=== PATIENT | male | born 1960 | race Caucasian/White ===

== ENCOUNTER 2016-10-08 12:15 | Inpatient (IN) | payer MEDICAID, OTHER ==
[~2016-10-08] VITALS: Ht 172.7 cm; Wt 74.6 kg
[~2016-10-08 12:15] MED LIST: DIVA500T52 PO; DOCU250C91 PO; LEVO50 PO; LITH300C3 PO; OMEP20 PO; QUET200T PO
[2016-10-08] MEDS ORDERED: MULT-1106 PO (13:37)
[2016-10-08] MEDS ORDERED: BENZ2TAB10 PO (13:37)
[2016-10-08] MEDS ORDERED: DIPH50 PO (13:37)
[2016-10-08] MEDS ORDERED: [UNRECOGNIZED DRUG - CODE] PO (13:37)
[2016-10-08] MEDS ORDERED: POLY1GRA MC (13:37)
[2016-10-08] MEDS ORDERED: PROP10 PO (13:37)
[2016-10-08] MEDS ORDERED: IBUP-2070 PO (13:37)
[2016-10-08] MEDS ORDERED: DiphenhydrAMINE HCL 50 MG/ML VIAL IM ONE (14:15)
[2016-10-08] MEDS ORDERED: ZOLPIDEM TARTRATE 10 MG TABLET PO PRN (14:15)
[2016-10-08] MEDS ORDERED: LORazepam 2 MG/ML VIAL IM ONE (14:15)
[2016-10-08] MEDS ORDERED: QUEtiapine FUMARATE 100 MG TABLET PO PRN (14:15)
[2016-10-08] MEDS ORDERED: MIRAUD PO (14:17)
[2016-10-08] MEDS ORDERED: DIPH25 PO (14:17)
[2016-10-08 14:47] LABS: BASOPHILS % (AUTO) 0.4 % (0.0-2.0); EOSINOPHILS % (AUTO) 6.4 % (1.0-6.0); HEMOGLOBIN 13.7 g/dL (13.5-17.5); LYMPHOCYTES # (AUTO) 4.6 K/uL (1.0-4.8); LYMPHOCYTES % (AUTO) 40.3 % (22.0-44.0); MEAN CORPUSCULAR HEMOGLOBIN 34.1 pg (26.0-34.0); MEAN CORPUSCULAR HGB CONC 32.7 G/dL (31.0-37.0); MEAN CORPUSCULAR VOLUME 104 fL (80-100); MONOCYTES % (AUTO) 9.1 % (2.0-9.0); NEUTROPHILS % (AUTO) 43.8 % (40.0-70.0); PLATELET COUNT (AUTO) 257 K/uL (150-450); RED BLOOD CELL COUNT(AUTO) 4.02 MIL/uL (4.50-5.90); RED CELL DISTRIBUTION WIDTH 14.2 % (11.5-14.5); WHITE BLOOD COUNT (AUTO) 11.5 K/uL (4.5-11.0)
[2016-10-08 14:54] LABS: ANION GAP 10 mmol/L (8-16); CALCIUM, TOTAL 9.6 mg/dL (8.8-10.5); CARBON DIOXIDE 25 mmol/L (22-29); CHLORIDE 104 mmol/L (98-107); CREATININE 1.05 mg/dL (0.60-1.30); GLOMERULAR FILTR. RATE CALC > 60 mL/min (>60); POTASSIUM 3.8 mmol/L (3.5-5.1); SODIUM SERUM 139 mmol/L (136-145); UREA NITROGEN, BLOOD 8 mg/dL (7-18)
[2016-10-08 15:00] LABS: ALANINE AMINOTRANSFERASE 28 U/L (12-78); ALBUMIN 3.1 g/dL (3.4-5.0); ASPARTATE AMINOTRANSFERASE 23 U/L (15-37); BILIRUBIN,TOTAL 0.4 mg/dL (0.1-1.0); TOTAL PROTEIN, SERUM 7.3 g/dL (6.4-8.2)
[2016-10-08 15:55] LABS: RBC MORPHOLOGY COMMENT ABNORMAL RBC MORPH
[2016-10-08 20:25] VITALS: BP 137/91
[2016-10-08] MEDS: DIVALPROEX SODIUM 500 MG DR TABLET PO SCH (20:51)
[2016-10-08] MEDS: QUEtiapine FUMARATE 200 MG TABLET PO SCH (20:52)
[2016-10-09] MEDS ORDERED: INFLUENZA VIRUS VACCINE QVS 2016-17 (3YR+)/PF 60 MCG/0.5 ML SYRINGE IM ONE (06:45)
[2016-10-09] MEDS ORDERED: IBUPROFEN 600 MG TABLET PO PRN (10:15)
[2016-10-09] MEDS ORDERED: PETROLATUM,WHITE 71 GM JELLY TP PRN (10:15)
[2016-10-09] MEDS ORDERED: ONDANSETRON HCL 4 MG TABLET PO PRN (10:15)
[2016-10-09] MEDS ORDERED: BACITRACIN 28.4 GM OINTMENT TP PRN (10:15)
[2016-10-09] MEDS ORDERED: ALBUTEROL SULFATE HFA 90 MCG/PUFF 8 GM INHALER IH PRN (10:15)
[2016-10-09] MEDS ORDERED: MAGNESIUM HYDROXIDE SUSPENSION 30 ML UDCUP PO PRN (10:15)
[2016-10-09] MEDS ORDERED: BENZOCAINE/MENTHOL LOZENGE [8 LOZENGES/PACKET] MM PRN (10:15)
[2016-10-09] MEDS ORDERED: LOPERAMIDE HCL 2 MG CAPSULE PO PRN (10:15)
[2016-10-09] MEDS ORDERED: MAG HYDROX/AL HYDROX/SIMETH ES 30 ML SUSPENSION UDCUP PO PRN (10:15)
[2016-10-09] MEDS ORDERED: ACETAMINOPHEN 325 MG TABLET PO PRN (10:15)
[2016-10-09] MEDS ORDERED: CloNIDine HCL 0.1 MG TABLET PO PRN (10:15)
[2016-10-09 12:56] VITALS: BP 156/71
[2016-10-09 16:00] VITALS: BP 111/66
[2016-10-09] MEDS: DIVALPROEX SODIUM 500 MG DR TABLET PO SCH (20:34)
[2016-10-09] MEDS: QUEtiapine FUMARATE 200 MG TABLET PO SCH (20:34)
[2016-10-10 08:43] VITALS: BP 152/64
[2016-10-10] MEDS: MULTIVITAMINS WITH IRON TABLET PO SCH (09:00)
[2016-10-10] MEDS: OMEPRAZOLE 20 MG CAPSULE PO SCH (09:00)
[2016-10-10 16:37] VITALS: BP 137/99
[2016-10-10] MEDS: QUEtiapine FUMARATE 200 MG TABLET PO SCH (21:32)
[2016-10-10] MEDS: DIVALPROEX SODIUM 500 MG DR TABLET PO SCH (21:32)
[2016-10-11 08:00] VITALS: BP 107/68
[2016-10-11] MEDS: OMEPRAZOLE 20 MG CAPSULE PO SCH (10:08)
[2016-10-11] MEDS: MULTIVITAMINS WITH IRON TABLET PO SCH (10:08)
[2016-10-11 16:00] VITALS: BP 129/78
[2016-10-11] MEDS: QUEtiapine FUMARATE 200 MG TABLET PO SCH (21:42)
[2016-10-11] MEDS: DIVALPROEX SODIUM 500 MG DR TABLET PO SCH (21:42)
[2016-10-12 01:05] VITALS: BP 150/84
[2016-10-12 08:02] VITALS: BP 119/78
[2016-10-12] MEDS: OMEPRAZOLE 20 MG CAPSULE PO SCH (10:01)
[2016-10-12] MEDS: MULTIVITAMINS WITH IRON TABLET PO SCH (10:01)
[2016-10-12 17:36] VITALS: BP 124/92
[2016-10-12] MEDS: DIVALPROEX SODIUM 500 MG DR TABLET PO SCH (20:48)
[2016-10-12] MEDS: QUEtiapine FUMARATE 200 MG TABLET PO SCH (20:48)
[2016-10-13 08:01] VITALS: BP 146/72
[2016-10-13] MEDS: OMEPRAZOLE 20 MG CAPSULE PO SCH (11:36)
[2016-10-13] MEDS: MULTIVITAMINS WITH IRON TABLET PO SCH (11:36)
[2016-10-13 17:13] VITALS: BP 119/78
[2016-10-13] MEDS: QUEtiapine FUMARATE 200 MG TABLET PO SCH (20:26)
[2016-10-13] MEDS: DIVALPROEX SODIUM 500 MG DR TABLET PO SCH (20:26)
[2016-10-14 00:30] VITALS: BP 143/73
[2016-10-14 08:00] VITALS: BP 139/96
[2016-10-14] MEDS: MULTIVITAMINS WITH IRON TABLET PO SCH (09:29)
[2016-10-14] MEDS: OMEPRAZOLE 20 MG CAPSULE PO SCH (09:29)
[2016-10-14 16:35] VITALS: BP 141/86
[2016-10-14] MEDS: QUEtiapine FUMARATE 200 MG TABLET PO SCH (20:15)
[2016-10-14] MEDS: DIVALPROEX SODIUM 500 MG DR TABLET PO SCH (20:16)
[2016-10-15 08:00] VITALS: BP 133/88
[2016-10-15] MEDS: MULTIVITAMINS WITH IRON TABLET PO SCH (08:32)
[2016-10-15] MEDS: OMEPRAZOLE 20 MG CAPSULE PO SCH (08:32)
[2016-10-15 16:30] VITALS: BP 148/66
[2016-10-15] MEDS: QUEtiapine FUMARATE 200 MG TABLET PO SCH (21:19)
[2016-10-15] MEDS: DIVALPROEX SODIUM 500 MG DR TABLET PO SCH (21:19)
[2016-10-16 08:00] VITALS: BP 105/61
[2016-10-16] MEDS: OMEPRAZOLE 20 MG CAPSULE PO SCH (09:54)
[2016-10-16] MEDS: QUEtiapine FUMARATE 200 MG TABLET PO SCH ×2 (09:54→21:16)
[2016-10-16] MEDS: MULTIVITAMINS WITH IRON TABLET PO SCH (09:54)
[2016-10-16] MEDS: DIVALPROEX SODIUM 500 MG DR TABLET PO SCH ×2 (09:56→21:17)
[2016-10-16] MEDS: LORazepam 2 MG TABLET PO PRN (16:45)
[2016-10-17 08:00] VITALS: BP 129/67
[2016-10-17] MEDS: OMEPRAZOLE 20 MG CAPSULE PO SCH (09:27)
[2016-10-17] MEDS: DIVALPROEX SODIUM 500 MG DR TABLET PO SCH ×2 (09:27→20:52)
[2016-10-17] MEDS: MULTIVITAMINS WITH IRON TABLET PO SCH (09:27)
[2016-10-17] MEDS: QUEtiapine FUMARATE 200 MG TABLET PO SCH ×2 (09:28→20:52)
[2016-10-17 16:30] VITALS: BP 126/73
[2016-10-18 02:40] VITALS: BP 132/76
[2016-10-18] MEDS: LORazepam 2 MG TABLET PO PRN (02:42)
[2016-10-18] MEDS: QUEtiapine FUMARATE 200 MG TABLET PO SCH (08:26)
[2016-10-18] MEDS: DIVALPROEX SODIUM 500 MG DR TABLET PO SCH (08:26)
[2016-10-18] MEDS: OMEPRAZOLE 20 MG CAPSULE PO SCH (08:26)
[2016-10-18 09:28] VITALS: BP 146/96
[2016-10-18] MEDS: MULTIVITAMINS WITH IRON TABLET PO SCH (14:44)
[2016-12-17] MEDS ORDERED: LITH300C3 PO (10:38)
[2016-12-17] MEDS ORDERED: DIVA125T PO ×2 (10:38)
[2016-12-17] MEDS ORDERED: BENZ2TAB10 PO (10:38)
[2016-12-17] MEDS ORDERED: PROP10 PO (10:38)
[2016-12-17] MEDS ORDERED: QUET100T PO (10:38)
[2016-12-17] MEDS ORDERED: QUET200T PO (10:38)
== END 2016-10-18 14:45 | disposition home or self-care (01) | DRG 750 ==
LOC: EMS 12:17 → EEVIPCON 12:17 → 3EC 16:04 → 3EI 10-12 21:29
DX: F25.0 Schizoaffective disorder, bipolar type (principal); J44.9 Chronic obstructive pulmonary disease, unspecified; G40.909 Epilepsy, unspecified, not intractable, without status epilepticus; E03.9 Hypothyroidism, unspecified; F10.20 Alcohol dependence, uncomplicated; K21.9 Gastro-esophageal reflux disease without esophagitis; M19.90 Unspecified osteoarthritis, unspecified site; K59.00 Constipation, unspecified; Z88.8 Allergy status to other drugs, medicaments and biological substances; Z78.1 Physical restraint status; Z79.899 Other long term (current) drug therapy
CPT/HCPCS: 96372; 99285; G0480; J1200; J2060; Q0162

== ENCOUNTER 2020-08-08 13:09 | Inpatient (IN) | payer OTHER, SELFPAY ==
[~2020-08-08] VITALS: Ht 172.7 cm; Wt 70.5 kg
[~2020-08-08 13:09] MED LIST changes: +BENZ1TAB10 PO; +BENZ2TAB10 PO; -DIVA500T52 PO; -DOCU250C91 PO; +DSS100 PO; +FERR-89 PO; +LACT30L PO; +LEVO25TA9 PO; -LEVO50 PO; +OLAN10TA3 PO; +OMEG-12 PO
[2020-08-08] MEDS ORDERED: DiphenhydrAMINE HCL 50 MG/ML VIAL IM ONE (14:45)
[2020-08-08] MEDS ORDERED: LORazepam 2 MG/ML VIAL IM ONE (14:45)
[2020-08-08 15:30] LABS: COVID AG,FIA SOURCE NASOPHARYNGEAL
[2020-08-08] MEDS ORDERED: ZOLPIDEM TARTRATE 10 MG TABLET PO PRN (17:15)
[2020-08-08] MEDS ORDERED: QUEtiapine FUMARATE 100 MG TABLET PO PRN (17:15)
[2020-08-08 17:39] LABS: BASOPHILS % (AUTO) 0.4 % (0.0-2.0); EOSINOPHILS % (AUTO) 1.1 % (1.0-6.0); HEMATOCRIT 39.9 % (41-53); LYMPHOCYTES # (AUTO) 1.8 K/uL (1.0-4.8); LYMPHOCYTES % (AUTO) 11.1 % (22.0-44.0); MEAN CORPUSCULAR HEMOGLOBIN 32.2 pg (26.0-34.0); MEAN CORPUSCULAR HGB CONC 32.7 G/dL (31.0-37.0); MEAN CORPUSCULAR VOLUME 98 fL (80-100); MONOCYTES # (AUTO) 1.4 K/uL (0.1-1.0); MONOCYTES % (AUTO) 8.8 % (2.0-9.0); NEUTROPHILS # (AUTO) 12.9 K/uL (1.8-7.7); NEUTROPHILS % (AUTO) 78.6 % (40.0-70.0); PLATELET COUNT (AUTO) 344 K/uL (150-450); RED BLOOD CELL COUNT(AUTO) 4.05 MIL/uL (4.50-5.90); RED CELL DISTRIBUTION WIDTH 13.7 % (11.5-14.5)
[2020-08-08 18:01] LABS: ANION GAP 11 mmol/L (8-16); CALCIUM, TOTAL 9.1 mg/dL (8.8-10.5); CARBON DIOXIDE 27 mmol/L (22-29); CHLORIDE 106 mmol/L (98-107); CREATININE 0.72 mg/dL (0.60-1.30); GLOMERULAR FILTR. RATE CALC > 60 mL/min (>60); GLUCOSE,RANDOM 97 mg/dL (70-110); POTASSIUM 3.8 mmol/L (3.5-5.1); SODIUM SERUM 144 mmol/L (136-145); UREA NITROGEN, BLOOD 6 mg/dL (7-18)
[2020-08-08 18:17] LABS: ALANINE AMINOTRANSFERASE 16 U/L (12-78); ALBUMIN 3.3 g/dL (3.4-5.0); ALKALINE PHOSPHATASE 141 U/L (46-116); ASPARTATE AMINOTRANSFERASE 18 U/L (15-37); BILIRUBIN,TOTAL 0.4 mg/dL (0.1-1.0); FREE T4 (FREE THYROXINE) 1.22 ng/dL (0.76-1.46); THYROID STIMULATING HORMONE 1.31 uIU/mL (0.36-3.74); TOTAL PROTEIN, SERUM 7.2 g/dL (6.4-8.2)
[2020-08-08 18:45] LABS: LITHIUM < 0.20 mmol/L (0.60-1.20)
[2020-08-08] MEDS ORDERED: AZITHROMYCIN 500 MG/NS 250 ML IV ONE (20:30)
[2020-08-08] MEDS ORDERED: CefTRIAXone 1 GM/DEXTROSE 50 ML IV ONE (20:30)
[2020-08-08 21:28] LABS: INFLUENZA TYPE A NEGATIVE FOR TYPE A (NEGATIVE); INFLUENZA TYPE B NEGATIVE FOR TYPE B (NEGATIVE)
[2020-08-08] MEDS ORDERED: ZOLPIDEM TARTRATE 5 MG TABLET PO PRN (21:45)
[2020-08-08] MEDS ORDERED: ALBUTEROL SULFATE 2.5 MG/0.5 ML NEB SOLUTION NEB PRN (21:45)
[2020-08-08] MEDS ORDERED: MAGNESIUM HYDROXIDE SUSPENSION 30 ML UDCUP PO PRN (21:45)
[2020-08-08] MEDS ORDERED: IPRATROPIUM BROMIDE 0.5 MG/2.5 ML NEB SOLUTION NEB PRN (21:45)
[2020-08-08] MEDS ORDERED: BISACODYL 10 MG RECTAL RECTAL SUPPOSITORY PR PRN (21:45)
[2020-08-08] MEDS ORDERED: MORPHINE SULFATE 2 MG/ML SYRINGE IVP PRN (21:45)
[2020-08-08] MEDS ORDERED: ACETAMINOPHEN 325 MG TABLET PO PRN (21:45)
[2020-08-08] MEDS ORDERED: HYDROCODONE/ACETAMINOPHEN 5-325 MG TABLET PO PRN (21:45)
[2020-08-08] MEDS ORDERED: ONDANSETRON HCL 4 MG/2 ML VIAL IVP PRN (21:45)
[2020-08-08] MEDS: LEVOFLOXACIN 750 MG/D5% WATER 150 ML IV SCH (23:01)
[2020-08-09] MEDS: HEPARIN SODIUM,PORCINE 5,000 UNITS/ML VIAL SQ SCH ×4 (00:32→23:58)
[2020-08-09 02:21] LABS: APPEARANCE,URINE CLEAR (CLEAR); BILIRUBIN,URINE NEGATIVE (NEGATIVE); GLUCOSE, URINE (UA) NEGATIVE (NEGATIVE); KETONES,URINE NEGATIVE (NEGATIVE); LEUKOCYTE ESTERASE ,URINE TRACE (NEGATIVE); NITRATE,URINE NEGATIVE (NEGATIVE); OCCULT BLOOD,URINE NEGATIVE (NEGATIVE); PH,URINE 6.5 (5.0-8.0); PROTEIN,URINE TRACE (NEGATIVE); UROBILINOGEN,URINE 0.2 mg/dL (<=1.0)
[2020-08-09 02:26] LABS: AMPHET/METH SCREEN,URINE NEGATIVE (NEGATIVE); BARBITURATE SCREEN, URINE NEGATIVE (NEGATIVE); BENZODIAZEPINES SCREEN,URINE NEGATIVE (NEGATIVE); CANNABINOID SCREEN,URINE NEGATIVE (NEGATIVE); COCAINE SCREEN,URINE NEGATIVE (NEGATIVE); METHADONE SCREEN, URINE NEGATIVE (NEGATIVE); OPIATE SCREEN,URINE NEGATIVE (NEGATIVE)
[2020-08-09 02:27] LABS: BACTERIA,URINE Few /HPF (None Seen); PHENCYCLIDINE SCREEN,URINE NEGATIVE (NEGATIVE); RBC,URINE 0-2 /HPF (0-2); SQUAMOUS EPITHELIAL CELL,UR Few /LPF (None Seen)
[2020-08-09] MEDS: LORazepam 2 MG TABLET PO PRN ×2 (03:21→17:03)
[2020-08-09] MEDS: PANTOPRAZOLE SODIUM 40 MG DR TABLET PO SCH (07:46)
[2020-08-09] MEDS: LACTULOSE 20 GM/30 ML SOLUTION UDCUP PO SCH (07:47)
[2020-08-09] MEDS: DOCUSATE SODIUM 100 MG CAPSULE PO SCH ×2 (08:01→22:51)
[2020-08-09] MEDS: QUEtiapine FUMARATE 200 MG TABLET PO SCH ×2 (08:06→22:53)
[2020-08-09] MEDS: FERROUS SULFATE 325 MG EC TABLET PO SCH ×2 (08:08→17:30)
[2020-08-09] MEDS: BENZTROPINE MESYLATE 1 MG TABLET PO SCH (08:20)
[2020-08-09] MEDS: LEVOTHYROXINE SODIUM 25 MCG TABLET PO SCH (08:20)
[2020-08-09] MEDS: OLANZapine 10 MG TABLET PO SCH ×2 (08:21→23:33)
[2020-08-09] MEDS: LITHIUM CARBONATE 300 MG CAPSULE PO SCH (08:21)
[2020-08-09] MEDS ORDERED: BENZTROPINE MESYLATE 1 MG TABLET PO SCH (09:00)
[2020-08-09 10:19] LABS: BASOPHILS % (AUTO) 0.5 % (0.0-2.0); EOSINOPHILS % (AUTO) 1.2 % (1.0-6.0); HEMATOCRIT 37.4 % (41-53); HEMOGLOBIN 12.4 g/dL (13.5-17.5); LYMPHOCYTES # (AUTO) 2.2 K/uL (1.0-4.8); LYMPHOCYTES % (AUTO) 24.9 % (22.0-44.0); MEAN CORPUSCULAR HEMOGLOBIN 32.6 pg (26.0-34.0); MEAN CORPUSCULAR HGB CONC 33.1 G/dL (31.0-37.0); MEAN CORPUSCULAR VOLUME 99 fL (80-100); MONOCYTES # (AUTO) 0.8 K/uL (0.1-1.0); MONOCYTES % (AUTO) 8.6 % (2.0-9.0); NEUTROPHILS # (AUTO) 5.7 K/uL (1.8-7.7); NEUTROPHILS % (AUTO) 64.8 % (40.0-70.0); PLATELET COUNT (AUTO) 303 K/uL (150-450); RED BLOOD CELL COUNT(AUTO) 3.79 MIL/uL (4.50-5.90); RED CELL DISTRIBUTION WIDTH 13.5 % (11.5-14.5)
[2020-08-09 10:32] LABS: ANION GAP 10 mmol/L (8-16); CALCIUM, TOTAL 9.2 mg/dL (8.8-10.5); CARBON DIOXIDE 24 mmol/L (22-29); CHLORIDE 109 mmol/L (98-107); CREATININE 1.04 mg/dL (0.60-1.30); GLOMERULAR FILTR. RATE CALC > 60 mL/min (>60); GLUCOSE,RANDOM 132 mg/dL (70-110); POTASSIUM 3.6 mmol/L (3.5-5.1); SODIUM SERUM 143 mmol/L (136-145); UREA NITROGEN, BLOOD 12 mg/dL (7-18)
[2020-08-09] MEDS ORDERED: LITHIUM CARBONATE 600 MG CAPSULE PO SCH (21:00)
[2020-08-09 21:47] VITALS: BP 109/71
[2020-08-09] MEDS ORDERED: SODIUM CHLORIDE 0.9% 500 ML IV ONE (22:44)
[2020-08-09] MEDS: LEVOFLOXACIN 750 MG/D5% WATER 150 ML IV SCH (23:33)
[2020-08-10] MEDS ORDERED: INFLUENZA VIRUS VACCINE QVS 2020-21 (6MO+)/PF 60 MCG/0.5 ML SYRINGE IM ONE (01:45)
[2020-08-10 04:00] VITALS: BP 105/45
[2020-08-10] MEDS ORDERED: PNEUMOCOCCAL VACCINE POLYVALENT 0.5 ML VIAL [PPSV23] IM ONE (05:45)
[2020-08-10] MEDS: LEVOTHYROXINE SODIUM 25 MCG TABLET PO SCH (06:16)
[2020-08-10 06:46] LABS: BASOPHILS % (AUTO) 0.7 % (0.0-2.0); EOSINOPHILS % (AUTO) 3.4 % (1.0-6.0); HEMATOCRIT 33.2 % (41-53); HEMOGLOBIN 11.1 g/dL (13.5-17.5); LYMPHOCYTES # (AUTO) 2.4 K/uL (1.0-4.8); LYMPHOCYTES % (AUTO) 34.4 % (22.0-44.0); MEAN CORPUSCULAR HGB CONC 33.5 G/dL (31.0-37.0); MEAN CORPUSCULAR VOLUME 98 fL (80-100); MONOCYTES # (AUTO) 0.9 K/uL (0.1-1.0); MONOCYTES % (AUTO) 12.2 % (2.0-9.0); NEUTROPHILS # (AUTO) 3.5 K/uL (1.8-7.7); NEUTROPHILS % (AUTO) 49.3 % (40.0-70.0); PLATELET COUNT (AUTO) 271 K/uL (150-450); RED BLOOD CELL COUNT(AUTO) 3.38 MIL/uL (4.50-5.90); RED CELL DISTRIBUTION WIDTH 13.5 % (11.5-14.5)
[2020-08-10 07:00] LABS: ANION GAP 7 mmol/L (8-16); CALCIUM, TOTAL 8.3 mg/dL (8.8-10.5); CARBON DIOXIDE 25 mmol/L (22-29); CHLORIDE 109 mmol/L (98-107); CREATININE 0.85 mg/dL (0.60-1.30); GLOMERULAR FILTR. RATE CALC > 60 mL/min (>60); GLUCOSE,RANDOM 81 mg/dL (70-110); POTASSIUM 3.9 mmol/L (3.5-5.1); SODIUM SERUM 141 mmol/L (136-145); UREA NITROGEN, BLOOD 12 mg/dL (7-18)
[2020-08-10 08:27] VITALS: BP 94/68
[2020-08-10] MEDS: HEPARIN SODIUM,PORCINE 5,000 UNITS/ML VIAL SQ SCH (09:00)
[2020-08-10] MEDS: FERROUS SULFATE 325 MG EC TABLET PO SCH (09:00)
[2020-08-10] MEDS ORDERED: SODIUM CHLORIDE 0.9% 500 ML IV ONE (09:04)
[2020-08-10] MEDS: LACTULOSE 20 GM/30 ML SOLUTION UDCUP PO SCH (09:06)
[2020-08-10] MEDS: DOCUSATE SODIUM 100 MG CAPSULE PO SCH (09:06)
[2020-08-10] MEDS: LITHIUM CARBONATE 300 MG CAPSULE PO SCH (09:07)
[2020-08-10] MEDS: PANTOPRAZOLE SODIUM 40 MG DR TABLET PO SCH (09:07)
[2020-08-10] MEDS: OLANZapine 10 MG TABLET PO SCH (09:08)
[2020-08-10] MEDS: BENZTROPINE MESYLATE 1 MG TABLET PO SCH (09:08)
[2020-08-10] MEDS: QUEtiapine FUMARATE 200 MG TABLET PO SCH (09:10)
[2020-08-10] MEDS ORDERED: LEVO-72 PO (13:47)
== END 2020-08-10 14:35 | disposition home or self-care (01) | DRG 139 ==
LOC: EMS 13:11 → UNDOADMIN 17:11 → 3EC 17:11 → 6N 08-09 19:42
PROVIDERS: ADMIT Internal Medicine; ATTEND Internal Medicine
DX: J18.9 Pneumonia, unspecified organism (principal); R65.10 Systemic inflammatory response syndrome (SIRS) of non-infectious origin without acute organ dysfunction; G40.909 Epilepsy, unspecified, not intractable, without status epilepticus; E03.9 Hypothyroidism, unspecified; D64.9 Anemia, unspecified; K21.9 Gastro-esophageal reflux disease without esophagitis; F17.210 Nicotine dependence, cigarettes, uncomplicated; F20.9 Schizophrenia, unspecified; J44.0 Chronic obstructive pulmonary disease with (acute) lower respiratory infection; Z88.8 Allergy status to other drugs, medicaments and biological substances; Z91.14 Patient's other noncompliance with medication regimen; Z91.5 Personal history of self-harm; Z20.828 Contact with and (suspected) exposure to other viral communicable diseases
CPT/HCPCS: 84145; 84439; 84443; 87040; 87426; 87804; 99291; G0480; J0456; J0696; J1200; J1644; J1956; J2060; J7040; 36415-L1; 36415-TC; 71045-TC; U0003